=== PATIENT | female | born 1995 | race Hispanic/Latino ===

== ENCOUNTER → 2017-05-24 | Outpatient (CLI) | payer MEDICAID ==
[~2017-05-24] MED LIST: COLA100C5 PO; IBUP-1114 PO; OXYC1TAB23 PO; PRE-TAB3 PO
[2017-05-24 17:18] LABS: MEAN CORPUSCULAR HEMOGLOBIN 30.3 pg (27.0-33.0); MEAN CORPUSCULAR HGB CONC 33.8 g/dl (32.0-36.5); MEAN CORPUSCULAR VOLUME 89.6 fl (80.0-96.0); RED CELL DISTRIBUTION WIDTH 14.2 % (11.5-14.5); WHITE BLOOD COUNT 8.9 K/mm3 (4.0-10.0)
== END ==
LOC: M LRY 13:11
PROVIDERS: ATTEND Obstetrics & Gynecology
DX: Z36 Encounter for antenatal screening of mother (principal); Z3A.00 Weeks of gestation of pregnancy not specified

== ENCOUNTER → 2017-06-04 | Outpatient (CLI) | payer MEDICAID, OTHER | LOC: M LAB 08:03 | PROVIDERS: ATTEND Obstetrics & Gynecology | DX: O34.211 Maternal care for low transverse scar from previous cesarean delivery (principal) ==

== ENCOUNTER → 2017-06-26 | Outpatient (REF) | payer OTHER | LOC: M LAB REF 17:17 | PROVIDERS: ATTEND Obstetrics & Gynecology | DX: Z34.83 Encounter for supervision of other normal pregnancy, third trimester (principal) ==

== ENCOUNTER 2017-07-10 04:40 | Outpatient (CLI) | payer OTHER ==
[~2017-07-10] VITALS: Ht 160 cm; Wt 105.0 kg
[2017-07-10 04:53] VITALS: BP 125/66
[2017-07-10] MEDS ORDERED: PRE-TAB3 PO (04:54)
== END 2017-07-10 05:32 | disposition home or self-care (01) ==
LOC: M LDO 04:40
PROVIDERS: ATTEND Advanced Practice Midwife
DX: O47.1 False labor at or after 37 completed weeks of gestation (principal); Z3A.38 38 weeks gestation of pregnancy

== ENCOUNTER 2017-07-22 05:13 | Inpatient (IN) | payer OTHER ==
[2017-07-22] VITALS (7 sets, daily range): BP systolic 99–118; BP diastolic 54–67
[~2017-07-22] VITALS: Ht 160 cm; Wt 108.2 kg
[~2017-07-22 05:13] MED LIST changes: -COLA100C5 PO; -IBUP-1114 PO; -OXYC1TAB23 PO
[2017-07-22 06:13] LABS: MEAN CORPUSCULAR HEMOGLOBIN 30.7 pg (27.0-33.0); MEAN CORPUSCULAR HGB CONC 35.4 g/dl (32.0-36.5); MEAN CORPUSCULAR VOLUME 86.7 fl (80.0-96.0); RED CELL DISTRIBUTION WIDTH 14.2 % (11.5-14.5); WHITE BLOOD COUNT 7.3 K/mm3 (4.0-10.0)
[2017-07-22] MEDS ORDERED: LR 1,000 ML IV SCH ×3 (06:40→09:45)
[2017-07-22] MEDS ORDERED: LACTATED RINGER'S 1000 ML IV STA (06:40)
[2017-07-22] MEDS ORDERED: BICITRA 30ML SOLN UDC As Ordered ONE (06:44)
[2017-07-22] MEDS ORDERED: ceFAZolin 2 GM/D5W 50 ML IV BAG (J0690) As Ordered ONE (06:44)
[2017-07-22] MEDS ORDERED: BICITRA 30ML SOLN UDC PO ONE (06:45)
[2017-07-22] MEDS ORDERED: ONDANSETRON 4MG/2ML VIAL (J2405) IV PRN ×3 (07:56→09:45)
[2017-07-22] MEDS ORDERED: METOCLOPRAMIDE INJ 10MG/2ML VIAL (J2765) IV PRN (07:56)
[2017-07-22] MEDS ORDERED: NALBUPHINE HCL 10 MG/ML AMP (J2300) IV PRN ×2 (07:56→09:45)
[2017-07-22] MEDS ORDERED: NALOXONE INJ 0.4 MG/1 ML VIAL (J2310) IV PRN ×2 (07:56)
[2017-07-22] MEDS ORDERED: ePHEDrine SULFATE 25 MG/5 ML(5MG/ML) SYRINGE As Ordered ONE (08:14)
[2017-07-22] MEDS ORDERED: MORPHINE PRES-FREE INJ 10 MG/10 ML VIAL (J2274) As Ordered ONE (08:14)
[2017-07-22] MEDS ORDERED: KETOROLAC 60 MG/2 ML VIAL (J1885) As Ordered ONE (08:14)
[2017-07-22] MEDS ORDERED: PHENYLephrine HCL 500 MCG/5 ML (100MCG/ML) SYRINGE (J2370) As Ordered ONE (08:14)
[2017-07-22] MEDS ORDERED: ONDANSETRON 4MG/2ML VIAL (J2405) As Ordered ONE (08:14)
[2017-07-22] MEDS ORDERED: dexameTHASONE 4 MG/ML 1ML VIAL (J1100) As Ordered ONE (08:14)
[2017-07-22] MEDS ORDERED: OXYTOCIN INJ 10 UNITS/ML VIAL (J2590) As Ordered ONE ×2 (08:14→08:50)
[2017-07-22 08:48] LABS: CORD GAS ABE A -5.6; CORD GAS HCO3 A 22.9 MEQ/L; CORD GAS O2 SAT A 46.7 %; CORD GAS PH A 7.222 UNITS; CORD GAS PO2 A 24.1 mmHg; CORD GAS SBC A 18.7 MEQ/L; CORD GAS TCO2 A 24.7 MEQ/L
[2017-07-22 08:49] LABS: CORD GAS ABE V -5.5; CORD GAS HCO3 V 23.5 MEQ/L; CORD GAS O2 SAT V 49.4 %; CORD GAS PCO2 V 60.9 mmHg; CORD GAS PH V 7.205 UNITS; CORD GAS PO2 V 25.1 mmHg; CORD GAS SBC V 18.8 MEQ/L; CORD GAS TCO2 V 25.4 MEQ/L
[2017-07-22] MEDS ORDERED: METOCLOPRAMIDE INJ 10MG/2ML VIAL (J2765) As Ordered ONE (08:50)
[2017-07-22] MEDS: DOCUSATE SODIUM 100 MG CAP PO SCH ×2 (09:00→19:56)
[2017-07-22] MEDS: PRENATAL VITAMINS CHEWABLE TABLET PO SCH (09:00)
[2017-07-22] MEDS ORDERED: RHOGAM 300 MCG (1500 IU) INJ (J2790) IM SCH (09:15)
[2017-07-22] MEDS ORDERED: MEASLES,MUMPS,RUBELLA VACCINE INJ (MMR-II) (90707) SC SCH (09:15)
[2017-07-22] MEDS ORDERED: PERCOCET 5MG/325MG TAB PO PRN (09:15)
[2017-07-22] MEDS ORDERED: PROMETHAZINE 25 MG TAB PO PRN (09:15)
[2017-07-22] MEDS ORDERED: fentaNYL 100 MCG/2 ML INJECTION (J3010) IV PRN (09:45)
[2017-07-22] MEDS ORDERED: MEPERIDINE INJ 25 MG/ML VIAL (J2175) IV PRN (09:45)
[2017-07-22] MEDS ORDERED: PROMETHAZINE INJ 25 MG/ML VIAL (J2550) IV ONE (11:00)
[2017-07-22] MEDS ORDERED: LACTATED RINGER'S 1000 ML IV ONE (11:00)
[2017-07-22] MEDS: KETOROLAC 30 MG/ML VIAL (J1885) IV SCH ×2 (14:02→19:58)
[2017-07-22] MEDS: PERCOCET 5MG/325MG TAB PO PRN ×2 (15:11→19:57)
[2017-07-23] MEDS: KETOROLAC 30 MG/ML VIAL (J1885) IV SCH ×2 (01:31→07:32)
[2017-07-23] MEDS: PERCOCET 5MG/325MG TAB PO PRN ×6 (01:41→22:41)
[2017-07-23 02:00] VITALS: BP 98/54
[2017-07-23 06:00] VITALS: BP 116/53
[2017-07-23 07:01] LABS: MEAN CORPUSCULAR HGB CONC 33.1 g/dl (32.0-36.5); MEAN CORPUSCULAR VOLUME 90.5 fl (80.0-96.0); RED CELL DISTRIBUTION WIDTH 14.6 % (11.5-14.5); WHITE BLOOD COUNT 10.6 10^3/uL (4.0-10.0)
[2017-07-23] MEDS: PRENATAL VITAMINS CHEWABLE TABLET PO SCH (07:32)
[2017-07-23] MEDS: DOCUSATE SODIUM 100 MG CAP PO SCH ×2 (07:32→21:00)
[2017-07-23] MEDS ORDERED: OXYC1TAB23 PO (08:41)
[2017-07-23 10:00] VITALS: BP 119/61
[2017-07-23 14:00] VITALS: BP 117/58
[2017-07-23] MEDS: IBUPROFEN 800 MG TAB PO SCH ×2 (16:00→23:24)
[2017-07-23 18:00] VITALS: BP 114/56
[2017-07-23 22:02] VITALS: BP 109/73
[2017-07-24] MEDS: PERCOCET 5MG/325MG TAB PO PRN ×3 (03:05→11:51)
[2017-07-24 06:00] VITALS: BP 116/56
--- NOTE | 2017-07-24 07:32 | DSES ---
DATE OF ADMISSION: 07/22/2017 DATE OF DISCHARGE: 07/24/2017 DISCHARGE DIAGNOSIS: Repeat section. DISCHARGE CONDITION: Stable. HISTORY AND HOSPITAL COURSE: The patient is a 22-year-old, 2, para 1, who presented at 40 weeks for a scheduled section. She underwent an uncomplicated section productive of a live born male infant, scores 4, 8, and 9, weight was 3512 grams or 7 pounds 12 ounces. Her estimated blood loss for section was 600 mL. She did well postoperatively. By postoperative day #2, had met all discharge criteria and was discharged home in stable condition. PHYSICAL EXAM ON DATE OF DISCHARGE: Her vital signs were stable. She was afebrile. Her general appearance was well appearing, in no acute distress. Her abdomen was soft, appropriately tender. Fundus below umbilicus. Her incision was clean, dry, intact, well approximated, nonerythemic. Steri-Strips were in place. Extremities: Negative for calf tenderness. DISCHARGE INSTRUCTIONS: 1. She is instructed to followup with Dr. Lazo in 2 weeks for incision check. 2. To report severe pain, heavy vaginal bleeding, or fever. 3. To remain on pelvic rest for 6 weeks. DISCHARGE MEDICATION: - Percocet Edited: [facility] 07/25/2017 [id number]
[2017-07-24] MEDS: PRENATAL VITAMINS CHEWABLE TABLET PO SCH (07:53)
[2017-07-24] MEDS: IBUPROFEN 800 MG TAB PO SCH (07:54)
[2017-07-24] MEDS: DOCUSATE SODIUM 100 MG CAP PO SCH (07:54)
[2017-07-24] MEDS ORDERED: COLA100C5 PO (09:16)
[2017-07-24] MEDS ORDERED: IBUP-1114 PO (09:17)
[2017-07-24] MEDS ORDERED: OXYC1TAB23 PO (09:17)
== END 2017-07-24 13:20 | disposition home or self-care (01) | DRG 540 ==
LOC: M LDI 05:13 → M OBS 11:35
PROVIDERS: ADMIT Specialist; ATTEND Specialist
PROC: 10D00Z1 Extraction of Products of Conception, Low, Open Approach (ICD-10-PCS; principal; 2017-07-22 07:30)
DX: O48.0 Post-term pregnancy (principal); Z37.0 Single live birth; Z3A.40 40 weeks gestation of pregnancy; O34.211 Maternal care for low transverse scar from previous cesarean delivery; O32.1XX0 Maternal care for breech presentation, not applicable or unspecified; N99.4 Postprocedural pelvic peritoneal adhesions

== ENCOUNTER → 2018-05-07 | Outpatient (REF) | payer OTHER ==
[2018-05-07 11:58] LABS: HEMATOCRIT 39.4 % (36.0-47.0); HEMOGLOBIN 13.3 g/dl (12.0-15.5); MEAN CORPUSCULAR HEMOGLOBIN 28.9 pg (27.0-33.0); MEAN CORPUSCULAR HGB CONC 33.8 g/dl (32.0-36.5); MEAN CORPUSCULAR VOLUME 85.5 fl (80.0-96.0); PLATELET COUNT, AUTOMATED 308 10^3/uL (150-450); RED BLOOD COUNT 4.61 10^6/uL (4.00-5.40); RED CELL DISTRIBUTION WIDTH 13.5 % (11.5-14.5); WHITE BLOOD COUNT 6.6 10^3/uL (4.0-10.0)
[2018-05-07 12:54] LABS: ALBUMIN 4.1 GM/DL (3.2-5.2); ALBUMIN/GLOBULIN RATIO 1.08 (1.00-1.93); ALKALINE PHOSPHATASE 79 U/L (45-117); ALT/SGPT 49 U/L (12-78); ANION GAP 8 MEQ/L (8-16); AST/SGOT 29 U/L (7-37); BILIRUBIN,TOTAL 0.4 MG/DL (0.2-1.0); BLOOD UREA NITROGEN 10 MG/DL (7-18); CALCIUM LEVEL 9.1 MG/DL (8.5-10.1); CARBON DIOXIDE LEVEL 28 MEQ/L (21-32); CHLORIDE LEVEL 104 MEQ/L (98-107); CREATININE FOR GFR 0.82 MG/DL (0.55-1.30); GLOMERULAR FILTRATION RATE > 60.0 (>60); GLUCOSE, FASTING 81 MG/DL (70-100); POTASSIUM SERUM 4.3 MEQ/L (3.5-5.1); SODIUM LEVEL 140 MEQ/L (136-145); TOTAL PROTEIN 7.9 GM/DL (6.4-8.2)
== END ==
LOC: M SFHCLERA 10:13
DX: R11.0 Nausea (principal)
CPT/HCPCS: 80053